=== PATIENT | female | born 1960 ===

== ENCOUNTER 2023-06-10 08:36 | Emergency (ER) | payer OTHER ==
[~2023-06-10] VITALS: Ht 160 cm; Wt 95.3 kg
[2023-06-10] MEDS ORDERED: LOTREL 5-20 MG1 CAP PO (08:40)
[2023-06-10] MEDS ORDERED: LIPITOR20 MG PO (08:40)
[2023-06-10] MEDS ORDERED: SYNTHROID75 MCG PO (08:40)
[2023-06-10 09:30] LABS: HEMATOCRIT 41.3 % (36.0-45.00); HEMOGLOBIN 14.1 g/dL (12.0-15.00); MEAN CELL VOLUME 87.3 fL (80.00-100.00); MEAN CORPUSCULAR HEMOGLOBIN 29.9 pg (27.00-32.0); MEAN CORPUSCULAR HGB CONC 34.2 g/dl (32.0-36.0); PLATELET COUNT 279 K/uL (150-450); RED BLOOD COUNT 4.74 M/uL (4.00-6.00); RED CELL DISTRIBUTION WIDTH 14.1 % (11.5-14.5)
[2023-06-10 09:53] LABS: CALCIUM 9.7 mg/dL (8.5-10.1); CREATININE SERUM 0.71 mg/dL (0.55-1.02); GFR 83.41; POTASSIUM 3.96 mEq/L (3.5-5.1)
[2023-06-10] MEDS ORDERED: FLONASE ALLERG9.9 ML NASAL (10:44)
[2023-06-10] MEDS ORDERED: SINUS RINSE ST1 EACH NASAL (10:44)
[2023-06-10] MEDS ORDERED: ZITHROMAX200 MG PO (10:46)
== END 2023-06-10 10:49 | disposition home or self-care (01) ==
LOC: ER 08:36
PROVIDERS: General Practice
DX: R09.81 Nasal congestion (principal); I10 Essential (primary) hypertension; E03.9 Hypothyroidism, unspecified; Z20.822 Contact with and (suspected) exposure to COVID-19